=== PATIENT | female | born 1960 | race Caucasian/White ===

== ENCOUNTER 2016-12-31 05:23 | Inpatient (IN) | payer OTHER ==
[2016-12-31] VITALS (18 sets, daily range): BP systolic 115–145; BP diastolic 55–67; PULSE 60–76; RESP 15–25; Ht 157.5 cm; Wt 70.4 kg
[~2016-12-31] VITALS: Ht 157.5 cm; Wt 70.4 kg
[~2016-12-31 05:23] MED LIST: NO DAILY MEDS
[2016-12-31] MEDS ORDERED: AMPICILLIN/SULB 3 GM/NS (PMX) 100 ML IVPB ONE (05:30)
[2016-12-31] MEDS ORDERED: SOD CHLORIDE 0.9% 1,000 ML IV ONE (05:30)
[2016-12-31] MEDS ORDERED: Metronidazole 500 MG in NS 100 ML IVPB ONE (05:30)
[2016-12-31] MEDS ORDERED: ACETAMINOPHEN 1000 MG/100 ML IVPB ONE (07:00)
[2016-12-31] MEDS ORDERED: BUPIVACAINE 0.25% (MPF) 30 ML INJ ONE (07:04)
[2016-12-31] MEDS ORDERED: NAPR220C2 PO (07:25)
[2016-12-31] MEDS ORDERED: LIDOCAINE 2% (SDV) 5 ML INJ ONE (07:29)
[2016-12-31] MEDS ORDERED: PROPOFOL 20 ML ONE (07:29)
[2016-12-31] MEDS ORDERED: FENTAnyl 50 MCG/ML VIAL ONE (07:29)
[2016-12-31] MEDS ORDERED: SUCCINYLCHOLINE CHLORIDE 100 MG/5 ML SYG IV ONE (07:29)
[2016-12-31] MEDS ORDERED: MIDAZOLAM 1 MG/ML 2 ML INJ ONE (07:29)
[2016-12-31] MEDS ORDERED: metroNIDAZOLE 500 MG/NS (PMX) 100 ML IVPB ONE (07:35)
[2016-12-31] MEDS ORDERED: DEXAMETHASONE 4 MG/ML 1 ML INJ ONE (08:05)
[2016-12-31] MEDS ORDERED: METOCLOPRAMIDE 10 MG INJ ONE (08:05)
[2016-12-31] MEDS ORDERED: ROCURONIUM 50 MG INJ ONE (08:05)
[2016-12-31] MEDS ORDERED: ONDANSETRON 4 MG INJ ONE ×2 (08:05→10:03)
[2016-12-31] MEDS ORDERED: FENTAnyl 50 MCG/ML VIAL IV PRN (08:30)
[2016-12-31] MEDS ORDERED: HYDROmorphONE (0.2 MG/ML) 10ML SYG IV PRN ×2 (08:30)
[2016-12-31] MEDS ORDERED: ONDANSETRON 4 MG INJ IV PRN (08:30)
[2016-12-31] MEDS ORDERED: PROCHLORPERAZINE 10 MG INJ IV PRN (08:30)
[2016-12-31] MEDS ORDERED: DIPHENHYDRAMINE 50 MG INJ IV PRN (08:30)
[2016-12-31] MEDS ORDERED: MEPERIDINE 25 MG INJ IV PRN (08:30)
[2016-12-31] MEDS ORDERED: GLYCOPYRROLATE 0.4 MG INJ ONE ×2 (08:40→08:55)
[2016-12-31] MEDS ORDERED: NEOSTIGMINE 3 MG/3 ML SYRINGE ONE (08:56)
[2016-12-31] MEDS ORDERED: HYDROmorphONE 2 MG/ML SYG ONE (09:08)
[2016-12-31] MEDS ORDERED: BUPIVACAINE 0.25% (MPF) 30 ML INJ INJ ONE (11:01)
[2016-12-31] MEDS ORDERED: NALOXONE (0.4 MG/ML) INJ ONE (11:04)
--- NOTE | 2016-12-31 11:20 | OPR ---
Date/Time of Note Date/Time of Note DATE: 12/31/16 TIME: 11:19 Operative Report Procedure Date: Dec 31, 2016 Preoperative Diagnosis repeated diverticulitis Postoperative Diagnosis same Operation Performed laparoscopic rectosigmoidectomy with colorectal low pelvic anastomosis laparoscopic splenic flexure mobilization therapeutic injection of subcutaneous marcaine Surgeon: Chloe CROSS Specimens sigmoid with distal marking rectum with distal marking Chloe CROSS Dec 31, 2016 11:20
[2016-12-31] MEDS ORDERED: HYDROmorphONE 1 MG/ML SYG IV PRN (11:30)
--- NOTE | 2016-12-31 12:51 | OPR ---
DATE OF OPERATION: 12/31/2016 INDICATION: This is a 56-year-old female with repeated bouts of diverticulitis. She requests surgi ingrid excision of her sigmoid colon. Risks, alternatives, benefits, and personnel were discussed with the patient. The patient expressed understanding and consents to the operation. Potential complic ations including, but not limited to, bleeding, infection, anastomotic leak, need for colostomy, nee d for reoperation, possible urethral injury were discussed with the patient. The patient expressed his understanding and consents to the operation. PREOPERATIVE DIAGNOSIS: Repeated diverticulitis. POSTOPERATIVE DIAGNOSIS: Repeated diverticulitis. OPERATION PERFORMED: 1. Laparoscopic rectosigmoidectomy with primary colorectal low pelvic anastomosis. 2. Laparoscopic splenic flexure mobilization. 3. Therapeutic injections, [place], [place] [address]. SURGEON: Renetta Recinos MD SPECIMEN: Sigmoid colon and rectum. COMPLICATIONS: None. ANESTHESIA: General. DESCRIPTION OF PROCEDURE: The patient was taken to the OR and prepped and draped in the usual steri le fashion. Surgical time out was performed. IV antibiotics were given. Supraumbilical midline in cision is made with a 15 blade. Dissection cautery was carried down to the fascia. Stay sutures wi th 0 Vicryl suture were placed on each side of the midline. The midline is opened. Lucas trocar i s introduced. Pneumoperitoneum was established. Suprapubic 12 mm optical trocar and right lower qu adrant 12 mm optical trocar and left lower quadrant 5 mm optical trocars are placed under direct vis ualization. Upon initial inspection, there were some adhesions and evidence of diverticulosis throu ghout the whole colon including the transverse and the right colon. The left colic artery was ident ified with laparoscopic harmonic. This was divided using a 45 mm [place] vascular load stapler. Ad ditional clips were placed in the proximal stump for reanastomosis. The left colon was then mobiliz ed by dividing the peritoneum proximally and distally down to the pelvic brim. The white line of To ldt was also divided laterally all the way superiorly up to the splenic flexure. The splenic flexur e mobilization was performed by first dividing the omentum from the transverse mesentery. The colon was then fully mobilized medially. The white line of Toldt was taken down to the pelvis, and the p erineum of the rectum divided. Initially a sigmoid resection was performed by firing 2 loads of 45 [place] blue load stapler at the pelvic brim. This was marched up proximally and bluntly for full m edial mobilization. The extracorporeal portion was then commenced. The midline incision was extend ed inferiorly around the umbilicus, and the Gel[place] was placed. The colon was extracorporealized un til resection was performed. The specimen was sent with silk marking distal end. The pathologist r eported there were no findings of masses, slowly diverticulosis with stool content in the diverticul osis. EEA anvil 25 was placed into the proximal colon by suturing with a running 3-0 PDS. The colo n was then replaced back into the abdomen. The EEA sizer was placed into the rectal stump. There w as an area of stricture where the EEA sizer could not be passed. Additional rectum resection was pe rformed by firing 2 loads of the 45 [place] blue load stapler. The mesorectum was divided using 2 f ires of the 45 white load [place] stapler. The left ureter was then visualized and identified which was kept out of harm's way. The additional specimen was sent to the pathologist with stitch markin g distal end for evaluation. Intraoperative pathology revealed no evidence of masses or lesions in the mucosa and only hardened stool balls in the diverticulosis. The reanastomosis was performed wit h an EEA 25 stapler by placing a 25 mm sizer up to the rectal stump, and then the EEA stapler was re approximated with the anvil. The colon was evaluated for straightened mesentery. The staple was fi red and held for 1 minute. There was good hemostasis. A leak test was performed by irrigating the pelvis and the proximal colon was held and insufflated. There was no evidence of any bubbles or any leak in the anastomotic site. Irrigation was then suctioned out. The ports were removed under dir ect visualization. The fascia was closed with a running #1 looped PDS from superior to inferior and inferior to superior. All skin sites were closed with skin lauren. Local anesthesia was injected . Dry dressings were applied. Dictated By: RENETTA STRONG/ARTI Conf#: [id number] DID#: [id number]
[2016-12-31] MEDS: SOD CHLORIDE 0.9% 1,000 ML IV SCH ×2 (12:52→22:30)
[2016-12-31 14:30] LABS: ADD SCAN DIFF NO
[2016-12-31 14:32] LABS: ABNORMAL IP MESSAGE 1; BASOPHILS % 0.1 % (0.0-2.0); HEMATOCRIT 38.3 % (37.0-47.0); HEMOGLOBIN 12.9 g/dl (12.0-16.0); LYMPHOCYTES # 0.4 10^3/ul (0.8-2.9); LYMPHOCYTES % 3.1 % (15.0-51.0); MEAN CORPUSCULAR HEMOGLOBIN 32.1 pg (29.0-33.0); MEAN CORPUSCULAR HGB CONC 33.7 g/dl (32.0-37.0); MEAN CORPUSCULAR VOLUME 95.3 fl (82.0-101.0); MEAN PLATELET VOLUME 9.8 fl (7.4-10.4); MONOCYTE # 0.6 10^3/ul (0.3-0.9); MONOCYTES % 5.6 % (0.0-11.0); NEUTROPHIL # 10.4 10^3/ul (1.6-7.5); NEUTROPHILS % 90.9 % (39.0-77.0); PLATELET COUNT 227 10^3/UL (140-415); RED BLOOD COUNT 4.02 10^6/ul (4.20-5.40); RED CELL DISTRIBUTION WIDTH 12.4 % (11.5-14.5); WHITE BLOOD COUNT 11.4 10^3/ul (4.8-10.8)
[2016-12-31] MEDS: AMPICILLIN/SULB 3 GM/NS (PMX) 100 ML IVPB SCH ×2 (14:34→20:26)
[2016-12-31 14:49] LABS: ALBUMIN 4.1 g/dl (3.3-4.9); ALBUMIN/GLOBULIN RATIO 1.78; BILIRUBIN,INDIRECT 0.2 mg/dl (0-1.1); BILIRUBIN,TOTAL 0.2 mg/dl (0.2-1.3); CALCIUM 8.1 mg/dl (8.4-10.2); CREATININE 0.69 mg/dl (0.44-1.00); POTASSIUM 4.3 mmol/L (3.5-5.1); TOTAL PROTEIN 6.4 g/dl (6.1-8.1)
[2016-12-31] MEDS: HEPARIN 5,000 UNIT/0.5 ML VIAL SC SCH ×2 (16:21→23:30)
--- NOTE | 2016-12-31 17:20 | HP ---
DATE OF ADMISSION: 12/31/2016 HISTORY OF PRESENT ILLNESS: The patient is a 56-year-old female with history of GERD, renal stones, arthritis, and diverticulosis. The patient had repeated bouts of diverticulitis and requested surg ical excision of the sigmoid colon. The patient was evaluated by Dr. Recinos in general surgery consult ation, and the patient was brought to the hospital and underwent laparoscopic rectosigmoidectomy wit h primary colorectal low pelvic anastomosis and laparoscopic splenic flexure mobilization. Postoper atively, the patient was admitted for further evaluation and management. During the examination, th e patient is lethargic but easily arousable, on supplemental oxygen, complains of pain, denies any s hortness of breath, denies any chest pain. PAST MEDICAL HISTORY: Per HPI. PAST SURGICAL HISTORY: The patient denies having any surgeries in the past except for colonoscopy p rocedure. FAMILY HISTORY: Positive for gastric cancer in patient's mother. SOCIAL HISTORY: The patient lives at home with her family. The patient works as a cook. Denies an y tobacco use, denies any alcohol use, denies any illicit drug use. ALLERGIES: NO KNOWN ALLERGIES. HOME MEDICATIONS: Include Naproxen. REVIEW OF SYSTEMS: A 12-point review of systems is negative unless what is mentioned in the HPI. PHYSICAL ASSESSMENT: GENERAL: Well-developed, well-nourished female who currently is awake, alert. VITAL SIGNS: Temperature is 97.7, pulse is 73, blood pressure 121/60, respiratory rate 18, oxygen s aturation 94% on 2 liters nasal cannula. HEENT: Head is atraumatic, normocephalic. Pupils equal, round, reactive to light and accommodation . Oral mucosa is pink and moist. NECK: Supple. No cervical lymphadenopathy, no thyromegaly. CHEST: Lungs clear bilaterally. There are no rhonchi, wheezes, rales noted. CARDIOVASCULAR: Normal S1, S2. No murmurs, gallops, clicks, rubs noted. ABDOMEN: Round, soft, status post surgery with laparoscopic incisions intact with dressings and ban dages. GENITOURINARY: The patient has a Hutchinson catheter with yellow urine. EXTREMITIES: There is no edema, clubbing, cyanosis. Pulses equal bilaterally 2+. SKIN: There is no rash, petechiae noted. NEUROLOGIC: The patient is awake, alert, and oriented x3. No focal deficits noted. Motor strength 5/5 in all extremities. LABORATORY DATA: Today CBC: White blood cells 11.4, hemoglobin 12.9, hematocrit 38.3, platelets 22 7. Chemistry: Sodium is 142, potassium 4.3, chloride 111, carbon dioxide 22, anion gap 15, BUN is 10, creatinine 0.69, glucose 159, calcium 8.1, total bilirubin 0.2, direct bilirubin 0, indirect idalia irubin 0.2, AST 21, ALT 24, alkaline phosphatase 60. ASSESSMENT AND PLAN: 1. Recurrent diverticulitis status post laparoscopic rectosigmoidectomy with primary colorectal low pelvic anastomosis, status post laparoscopic splenic flexure mobilization by Dr. Recinos. Continue IV fluids and antibiotics. Continue morphine for pain and Zofran p.r.n. for nausea. Follow up surgica l recommendations. 2. History of gastroesophageal reflux disease. We will continue sequential compression device for deep venous thrombosis prophylaxis. We will check CBC and BMP tomorrow. Further recommendations based on clinical course. Plan of care discussed with Dr. Marroquin. Dictated By: PETR WADE PATIENT COORDINATOR for EVA MARROQUIN MD SR/NTS Conf#: [id number] DID#: [id number]
[2016-12-31] MEDS: morphine 2 MG INJ IV PRN (18:40)
[2017-01-01] MEDS: AMPICILLIN/SULB 3 GM/NS (PMX) 100 ML IVPB SCH ×2 (02:25→08:44)
[2017-01-01] MEDS: morphine 2 MG INJ IV PRN ×5 (02:25→19:08)
[2017-01-01] MEDS: ONDANSETRON 4 MG INJ IV PRN (02:59)
[2017-01-01 05:49] LABS: ADD SCAN DIFF NO
[2017-01-01 05:52] LABS: BASOPHILS % 0.1 % (0.0-2.0); HEMATOCRIT 34.2 % (37.0-47.0); HEMOGLOBIN 11.6 g/dl (12.0-16.0); LYMPHOCYTES # 0.8 10^3/ul (0.8-2.9); LYMPHOCYTES % 6.1 % (15.0-51.0); MEAN CORPUSCULAR HGB CONC 33.9 g/dl (32.0-37.0); MEAN CORPUSCULAR VOLUME 94.2 fl (82.0-101.0); MEAN PLATELET VOLUME 10.6 fl (7.4-10.4); MONOCYTE # 0.8 10^3/ul (0.3-0.9); NEUTROPHIL # 11.3 10^3/ul (1.6-7.5); NEUTROPHILS % 87.5 % (39.0-77.0); PLATELET COUNT 226 10^3/UL (140-415); RED BLOOD COUNT 3.63 10^6/ul (4.20-5.40); RED CELL DISTRIBUTION WIDTH 12.4 % (11.5-14.5); WHITE BLOOD COUNT 12.9 10^3/ul (4.8-10.8)
[2017-01-01] MEDS: HEPARIN 5,000 UNIT/0.5 ML VIAL SC SCH ×3 (06:33→21:13)
[2017-01-01 06:51] LABS: ALBUMIN 3.4 g/dl (3.3-4.9); ALBUMIN/GLOBULIN RATIO 1.25; BILIRUBIN,INDIRECT 0.5 mg/dl (0-1.1); BILIRUBIN,TOTAL 0.5 mg/dl (0.2-1.3); CALCIUM 8.3 mg/dl (8.4-10.2); CREATININE 0.63 mg/dl (0.44-1.00); POTASSIUM 3.6 mmol/L (3.5-5.1); TOTAL PROTEIN 6.1 g/dl (6.1-8.1)
[2017-01-01 07:51] VITALS: BP 126/65; RESP 18
[2017-01-01] MEDS: SOD CHLORIDE 0.9% 1,000 ML IV SCH ×3 (08:03→21:11)
--- NOTE | 2017-01-01 13:09 | PN ---
Date/Time of Note Date/Time of Note DATE: 01/01/17 TIME: 13:08 Assessment/Plan VTE Prophylaxis VTE Prophylaxis Intervention: SCD's Lines/Catheters IV Catheter Type (from Nrs): Peripheral IV Urinary Cath still in place: Yes Reason Cath still needed: other (indicate) Assessment/Plan Chief Complaint/Hosp Course s/p lap rectosigmoidectomy Problems: Assessment/Plan doing well, continue ice chips Subjective 24 Hr Interval Summary Free Text/Dictation no issues overnight Exam/Review of Systems Vital Signs Vitals Vital Signs Date Time Temp Pulse Resp B/P Pulse Ox O2 Delivery O2 Flow Rate FiO2 01/01/17 07:51 98.7 88 18 126/65 96 12/31/16 13:37 Nasal Cannula 2.0 Intake and Output 12/31/16 12/31/16 01/01/17 15:00 23:00 07:00 Intake Total 1650 ml 1100 ml 900 ml Output Total 570 ml 900 ml 250 ml Balance 1080 ml 200 ml 650 ml Exam c/d/i Results Result Diagram: 01/01/17 0515 01/01/17 0515 Results 24 hrs Laboratory Tests Test 12/31/16 14:22 01/01/17 05:15 01/01/17 07:19 White Blood Count 11.4 H 12.9 H Red Blood Count 4.02 L 3.63 L Hemoglobin 12.9 11.6 L Hematocrit 38.3 34.2 L Mean Corpuscular Volume 95.3 94.2 Mean Corpuscular Hemoglobin 32.1 32.0 Mean Corpuscular Hemoglobin Concent 33.7 33.9 Red Cell Distribution Width 12.4 12.4 Platelet Count 227 226 Mean Platelet Volume 9.8 10.6 H Neutrophils % 90.9 H 87.5 H Lymphocytes % 3.1 L 6.1 L Monocytes % 5.6 6.0 Eosinophils % 0.0 0.0 Basophils % 0.1 0.1 Nucleated Red Blood Cells % 0.0 0.0 Neutrophils # 10.4 H 11.3 H Lymphocytes # 0.4 L 0.8 Monocytes # 0.6 0.8 Eosinophils # 0.0 0.0 Basophils # 0.0 0.0 Nucleated Red Blood Cells # 0.0 0.0 Sodium Level 142 140 Potassium Level 4.3 3.6 Chloride Level 111 H 111 H Carbon Dioxide Level 22 21 Anion Gap 13 12 Blood Urea Nitrogen 10 9 Creatinine 0.69 0.63 Glucose Level 159 118 # Calcium Level 8.1 L 8.3 L Total Bilirubin 0.2 0.5 Direct Bilirubin 0.00 0.00 Indirect Bilirubin 0.2 0.5 Aspartate Amino Transf (AST/SGOT) 21 26 Alanine Aminotransferase (ALT/SGPT) 24 18 Alkaline Phosphatase 60 52 Total Protein 6.4 6.1 Albumin 4.1 3.4 Globulin 2.30 2.70 Albumin/Globulin Ratio 1.78 1.25 Lab Scanned Report LAB Medications Medications Current Medications Hydromorphone HCl (Dilaudid) 0.5 mg Q6H PRN IV PAIN LEVEL 6-10; Start 12/31/16 at 11:30 Morphine Sulfate 2 mg 2 mg Q2H PRN IV PAIN LEVEL 6-10 Last administered on 01/01 12:24; Admin Dose 2 MG; Start 12/31/16 at 11:30 Sodium Chloride (NS) 1,000 ml @ 100 mls/hr Q10H IV Last administered on 08:03; Admin Dose 100 MLS/HR; Start 12/31/16 at 11:20 Heparin Sodium (Porcine) (Heparin (5000 Units/0.5 ml)) 5,000 unit Q8 SC Last administered on 01/01/17 06:33; Admin Dose 5,000 UNIT; Start 12/31/16 at 14:00 Ondansetron HCl (Zofran Inj) 4 mg Q4H PRN IV NAUSEA AND/OR VOMITING Last administered on 01/01/17 02:59; Admin Dose 4 MG; Start 01/01/17 at 03:00 Chloe CROSS Jan 01, 2017 13:09
--- NOTE | 2017-01-01 16:43 | PN ---
Date/Time of Note Date/Time of Note DATE: 01/01/17 TIME: 16:40 Assessment/Plan VTE Prophylaxis VTE Prophylaxis Intervention: SCD's Lines/Catheters IV Catheter Type (from Nrs): Peripheral IV Urinary Cath still in place: Yes Reason Cath still needed: urinary retention Assessment/Plan Chief Complaint/Hosp Course Patient tolerates ice chips well, denies nausea and vomiting, complaints of abdominal pain which is well controlled on current medication. Hypoactive bowel sounds no flatus ASSESSMENT AND PLAN: 1. Recurrent diverticulitis, status post laparoscopic rectosigmoidectomy with primary colorectal low pelvic anastomosis, status post laparoscopic splenic flexure mobilization by Dr. Recinos. Continue IV fluids. Continue morphine for pain and Zofran p.r.n. for nausea. Follow up surgical recommendations. 2. History of gastroesophageal reflux disease. Continue sequential compression device for deep venous thrombosis prophylaxis. Further recommendations based on clinical course. Plan of care discussed with Dr. Gardner. Problems: Exam/Review of Systems Vital Signs Vitals Vital Signs Date Time Temp Pulse Resp B/P Pulse Ox O2 Delivery O2 Flow Rate FiO2 01/01/17 07:51 98.7 88 18 126/65 96 12/31/16 13:37 Nasal Cannula 2.0 Intake and Output 12/31/16 12/31/16 01/01/17 14:59 22:59 06:59 Intake Total 1650 ml 1100 ml 900 ml Output Total 570 ml 900 ml 250 ml Balance 1080 ml 200 ml 650 ml Exam Constitutional: alert, oriented Head: normocephalic Neck: supple Respiratory: normal air movement Cardiovascular: nl pulses Gastrointestinal: other (Status post surgery), soft Extremities: normal pulses Results Result Diagram: 01/01/17 0515 01/01/17 0515 Results 24 hrs Laboratory Tests Test 01/01/17 05:15 01/01/17 07:19 White Blood Count 12.9 H Red Blood Count 3.63 L Hemoglobin 11.6 L Hematocrit 34.2 L Mean Corpuscular Volume 94.2 Mean Corpuscular Hemoglobin 32.0 Mean Corpuscular Hemoglobin Concent 33.9 Red Cell Distribution Width 12.4 Platelet Count 226 Mean Platelet Volume 10.6 H Neutrophils % 87.5 H Lymphocytes % 6.1 L Monocytes % 6.0 Eosinophils % 0.0 Basophils % 0.1 Nucleated Red Blood Cells % 0.0 Neutrophils # 11.3 H Lymphocytes # 0.8 Monocytes # 0.8 Eosinophils # 0.0 Basophils # 0.0 Nucleated Red Blood Cells # 0.0 Sodium Level 140 Potassium Level 3.6 Chloride Level 111 H Carbon Dioxide Level 21 Anion Gap 12 Blood Urea Nitrogen 9 Creatinine 0.63 Glucose Level 118 # Calcium Level 8.3 L Total Bilirubin 0.5 Direct Bilirubin 0.00 Indirect Bilirubin 0.5 Aspartate Amino Transf (AST/SGOT) 26 Alanine Aminotransferase (ALT/SGPT) 18 Alkaline Phosphatase 52 Total Protein 6.1 Albumin 3.4 Globulin 2.70 Albumin/Globulin Ratio 1.25 Lab Scanned Report LAB Medications Medications Current Medications Hydromorphone HCl (Dilaudid) 0.5 mg Q6H PRN IV PAIN LEVEL 6-10; Start 12/31/16 at 11:30 Morphine Sulfate 2 mg 2 mg Q2H PRN IV PAIN LEVEL 6-10 Last administered on 01/01 12:24; Admin Dose 2 MG; Start 12/31/16 at 11:30 Sodium Chloride (NS) 1,000 ml @ 100 mls/hr Q10H IV Last administered on 08:03; Admin Dose 100 MLS/HR; Start 12/31/16 at 11:20 Heparin Sodium (Porcine) (Heparin (5000 Units/0.5 ml)) 5,000 unit Q8 SC Last administered on 01/01/17 14:18; Admin Dose 5,000 UNIT; Start 12/31/16 at 14:00 Ondansetron HCl (Zofran Inj) 4 mg Q4H PRN IV NAUSEA AND/OR VOMITING Last administered on 01/01/17 02:59; Admin Dose 4 MG; Start 01/01/17 at 03:00 PETR WADE Jan 01, 2017 16:43
[2017-01-01 20:00] VITALS: BP 132/68; RESP 20
[2017-01-02] MEDS: HEPARIN 5,000 UNIT/0.5 ML VIAL SC SCH ×3 (05:31→22:15)
[2017-01-02] MEDS: morphine 2 MG INJ IV PRN ×6 (05:33→22:07)
[2017-01-02 06:15] LABS: ADD SCAN DIFF NO
[2017-01-02 06:37] LABS: BASOPHILS % 0.1 % (0.0-2.0); EOSINOPHILS % 0.1 % (0.0-7.0); HEMATOCRIT 33.5 % (37.0-47.0); LYMPHOCYTES # 1.2 10^3/ul (0.8-2.9); LYMPHOCYTES % 15.9 % (15.0-51.0); MEAN CORPUSCULAR HEMOGLOBIN 31.1 pg (29.0-33.0); MEAN CORPUSCULAR HGB CONC 32.8 g/dl (32.0-37.0); MEAN CORPUSCULAR VOLUME 94.6 fl (82.0-101.0); MEAN PLATELET VOLUME 10.8 fl (7.4-10.4); MONOCYTE # 0.4 10^3/ul (0.3-0.9); MONOCYTES % 5.3 % (0.0-11.0); NEUTROPHILS % 78.1 % (39.0-77.0); PLATELET COUNT 197 10^3/UL (140-415); RED BLOOD COUNT 3.54 10^6/ul (4.20-5.40); RED CELL DISTRIBUTION WIDTH 12.6 % (11.5-14.5); WHITE BLOOD COUNT 7.7 10^3/ul (4.8-10.8)
[2017-01-02 07:26] VITALS: BP 122/66; RESP 18
[2017-01-02 07:28] LABS: CREATININE 0.69 mg/dl (0.44-1.00); POTASSIUM 3.5 mmol/L (3.5-5.1)
[2017-01-02] MEDS: SOD CHLORIDE 0.9% 1,000 ML IV SCH ×2 (08:38→18:53)
--- NOTE | 2017-01-02 12:18 | PN ---
Date/Time of Note Date/Time of Note DATE: 01/02/17 TIME: 12:17 Assessment/Plan VTE Prophylaxis VTE Prophylaxis Intervention: SCD's Lines/Catheters IV [facility] Type [facility] Peripheral IV Urinary Cath still in place: No (discontinued at 0630am today) Assessment/Plan Chief Complaint/Hosp Course Patient was hypoactive bowel sounds and negative flatus, complains of nausea which is controlled with medication, pain is well controlled. ASSESSMENT AND PLAN: 1. Recurrent diverticulitis, status post laparoscopic rectosigmoidectomy with primary colorectal low pelvic anastomosis, status post laparoscopic splenic flexure mobilization by Dr. Recinos. Continue IV fluids. Continue morphine for pain and Zofran p.r.n. for nausea. Follow up surgical recommendations. 2. History of gastroesophageal reflux disease. Continue sequential compression device for deep venous thrombosis prophylaxis. Further recommendations based on clinical course. Plan of care discussed with Dr. Gardner. Problems: Exam/Review of Systems Vital Signs Vitals Vital Signs Date Time Temp Pulse Resp B/P Pulse Ox O2 Delivery O2 Flow Rate FiO2 01/02/17 07:26 98.7 68 18 122/66 96 01/01/17 16:40 1.0 12/31/16 13:37 Nasal Cannula Intake and Output 01/01/17 01/01/17 01/02/17 15:00 23:00 07:00 Intake Total 400 ml 2000 ml 900 ml Output Total 1800 ml 1000 ml Balance 400 ml 200 ml -100 ml Exam Constitutional: alert, oriented Head: normocephalic Neck: supple Respiratory: normal air movement Cardiovascular: nl pulses Gastrointestinal: other (Status post surgery), soft Extremities: normal pulses Results Result Diagram: 01/02/17 0530 01/02/17 0530 Results 24 hrs Laboratory Tests Test 01/02/17 05:30 01/02/17 06:57 White Blood Count 7.7 # Red Blood Count 3.54 L Hemoglobin 11.0 L Hematocrit 33.5 L Mean Corpuscular Volume 94.6 Mean Corpuscular Hemoglobin 31.1 Mean Corpuscular Hemoglobin Concent 32.8 Red Cell Distribution Width 12.6 Platelet Count 197 Mean Platelet Volume 10.8 H Neutrophils % 78.1 H Lymphocytes % 15.9 Monocytes % 5.3 Eosinophils % 0.1 Basophils % 0.1 Nucleated Red Blood Cells % 0.0 Neutrophils # 6.0 Lymphocytes # 1.2 Monocytes # 0.4 Eosinophils # 0.0 Basophils # 0.0 Nucleated Red Blood Cells # 0.0 Sodium Level 140 Potassium Level 3.5 Chloride Level 110 Carbon Dioxide Level 24 Anion Gap 10 Blood Urea Nitrogen 10 Creatinine 0.69 Glucose Level 84 Calcium Level 8.0 L Lab Scanned Report REFERENCE LAB Medications Medications Current Medications Hydromorphone HCl (Dilaudid) 0.5 mg Q6H PRN IV PAIN LEVEL 6-10; Start 12/31/16 at 11:30 Morphine Sulfate 2 mg 2 mg Q2H PRN IV PAIN LEVEL 6-10 Last administered on 01/02 08:49; Admin Dose 2 MG; Start 12/31/16 at 11:30 Sodium Chloride (NS) 1,000 ml @ 100 mls/hr Q10H IV Last administered on 08:38; Admin Dose 100 MLS/HR; Start 12/31/16 at 11:20 Heparin Sodium (Porcine) (Heparin (5000 Units/0.5 ml)) 5,000 unit Q8 SC Last administered on 01/02/17 05:31; Admin Dose 5,000 UNIT; Start 12/31/16 at 14:00 Ondansetron HCl (Zofran Inj) 4 mg Q4H PRN IV NAUSEA AND/OR VOMITING Last administered on 01/01/17 02:59; Admin Dose 4 MG; Start 01/01/17 at 03:00 PETR WADE Jan 02, 2017 12:18
--- NOTE | 2017-01-02 13:16 | PN ---
Date/Time of Note Date/Time of Note DATE: 01/02/17 TIME: 13:15 Assessment/Plan VTE Prophylaxis VTE Prophylaxis Intervention: SCD's Lines/Catheters IV Catheter Type (from Nrs): Peripheral IV Urinary Cath still in place: No (discontinued at 0630am today) Assessment/Plan Chief Complaint/Hosp Course s/p lap rectosigmoidectomy Problems: Assessment/Plan start clears Subjective 24 Hr Interval Summary Free Text/Dictation doing well no new issues Exam/Review of Systems Vital Signs Vitals Vital Signs Date Time Temp Pulse Resp B/P Pulse Ox O2 Delivery O2 Flow Rate FiO2 01/02/17 07:26 98.7 68 18 122/66 96 01/01/17 16:40 1.0 12/31/16 13:37 Nasal Cannula Intake and Output 01/01/17 01/01/17 01/02/17 15:00 23:00 07:00 Intake Total 400 ml 2000 ml 900 ml Output Total 1800 ml 1000 ml Balance 400 ml 200 ml -100 ml Exam c/d/i Results Result Diagram: 01/02/17 0530 01/02/17 0530 Results 24 hrs Laboratory Tests Test 01/02/17 05:30 01/02/17 06:57 White Blood Count 7.7 # Red Blood Count 3.54 L Hemoglobin 11.0 L Hematocrit 33.5 L Mean Corpuscular Volume 94.6 Mean Corpuscular Hemoglobin 31.1 Mean Corpuscular Hemoglobin Concent 32.8 Red Cell Distribution Width 12.6 Platelet Count 197 Mean Platelet Volume 10.8 H Neutrophils % 78.1 H Lymphocytes % 15.9 Monocytes % 5.3 Eosinophils % 0.1 Basophils % 0.1 Nucleated Red Blood Cells % 0.0 Neutrophils # 6.0 Lymphocytes # 1.2 Monocytes # 0.4 Eosinophils # 0.0 Basophils # 0.0 Nucleated Red Blood Cells # 0.0 Sodium Level 140 Potassium Level 3.5 Chloride Level 110 Carbon Dioxide Level 24 Anion Gap 10 Blood Urea Nitrogen 10 Creatinine 0.69 Glucose Level 84 Calcium Level 8.0 L Lab Scanned Report REFERENCE LAB Medications Medications Current Medications Hydromorphone HCl (Dilaudid) 0.5 mg Q6H PRN IV PAIN LEVEL 6-10; Start 12/31/16 at 11:30 Morphine Sulfate 2 mg 2 mg Q2H PRN IV PAIN LEVEL 6-10 Last administered on 01/02 12:24; Admin Dose 2 MG; Start 12/31/16 at 11:30 Sodium Chloride (NS) 1,000 ml @ 100 mls/hr Q10H IV Last administered on 08:38; Admin Dose 100 MLS/HR; Start 12/31/16 at 11:20 Heparin Sodium (Porcine) (Heparin (5000 Units/0.5 ml)) 5,000 unit Q8 SC Last administered on 01/02/17 05:31; Admin Dose 5,000 UNIT; Start 12/31/16 at 14:00 Ondansetron HCl (Zofran Inj) 4 mg Q4H PRN IV NAUSEA AND/OR VOMITING Last administered on 01/01/17 02:59; Admin Dose 4 MG; Start 01/01/17 at 03:00 Chloe CROSS Jan 02, 2017 13:16
[2017-01-02] MEDS: ONDANSETRON 4 MG INJ IV PRN (18:03)
[2017-01-02 20:52] VITALS: BP 147/70; RESP 18
[2017-01-03] MEDS: morphine 2 MG INJ IV PRN ×3 (05:11→21:15)
[2017-01-03] MEDS: HEPARIN 5,000 UNIT/0.5 ML VIAL SC SCH ×3 (05:23→21:20)
[2017-01-03] MEDS: SOD CHLORIDE 0.9% 1,000 ML IV SCH ×4 (06:00→19:20)
[2017-01-03 06:02] LABS: ADD SCAN DIFF NO
[2017-01-03 06:13] LABS: BASOPHILS % 0.2 % (0.0-2.0); EOSINOPHILS # 0.1 10^3/ul (0.0-0.5); EOSINOPHILS % 0.9 % (0.0-7.0); HEMATOCRIT 32.5 % (37.0-47.0); HEMOGLOBIN 10.8 g/dl (12.0-16.0); LYMPHOCYTES # 0.9 10^3/ul (0.8-2.9); LYMPHOCYTES % 13.4 % (15.0-51.0); MEAN CORPUSCULAR HEMOGLOBIN 31.7 pg (29.0-33.0); MEAN CORPUSCULAR HGB CONC 33.2 g/dl (32.0-37.0); MEAN CORPUSCULAR VOLUME 95.3 fl (82.0-101.0); MEAN PLATELET VOLUME 10.5 fl (7.4-10.4); MONOCYTE # 0.4 10^3/ul (0.3-0.9); MONOCYTES % 6.3 % (0.0-11.0); NEUTROPHIL # 5.1 10^3/ul (1.6-7.5); NEUTROPHILS % 78.9 % (39.0-77.0); PLATELET COUNT 189 10^3/UL (140-415); RED BLOOD COUNT 3.41 10^6/ul (4.20-5.40); RED CELL DISTRIBUTION WIDTH 12.4 % (11.5-14.5); WHITE BLOOD COUNT 6.5 10^3/ul (4.8-10.8)
[2017-01-03 06:39] LABS: CREATININE 0.68 mg/dl (0.44-1.00); POTASSIUM 3.3 mmol/L (3.5-5.1)
[2017-01-03 07:48] VITALS: BP 136/68; RESP 16
--- NOTE | 2017-01-03 11:04 | PN ---
Date/Time of Note Date/Time of Note DATE: 01/03/17 TIME: 11:01 Assessment/Plan VTE Prophylaxis VTE Prophylaxis Intervention: other Lines/Catheters IV C[facility]ter Type (from [facility]): Peripheral IV Urinary Cath still in place: No (discontinued at 0630am today) Assessment/Plan Assessment/Plan - Hypokalemia- K replaced, am BMP - Recurrent diverticulitis, status post laparoscopic rectosigmoidectomy with primary colorectal low pelvic anastomosis, status post laparoscopic splenic flexure mobilization by Dr. Recinos. Continue IV fluids. - per Sx - morphine for pain - Zofran p.r.n. for nausea. Follow up surgical recommendations. - History of gastroesophageal reflux disease. Continue sequential compression device for deep venous thrombosis prophylaxis. Further recommendations based on clinical course. Plan of care discussed with Dr. Gardner. Subjective 24 Hr Interval Summary Free Text/Dictation Sitting up in chair, afebrile, has not passed gas yet, DDI, c/o nausea when eating food. ambulated well with staff Respiratory: no complaints Cardiovascular: no complaints Gastrointestinal: nausea, pain Genitourinary: no complaints Musculoskeletal: no complaints Skin: other Neurologic: no complaints Exam/Review of Systems Vital Signs Vitals Vital Signs Date Time Temp Pulse Resp B/P Pulse Ox O2 Delivery O2 Flow Rate FiO2 01/03/17 07:48 98.5 67 16 136/68 98 01/01/17 16:40 1.0 12/31/16 13:37 Nasal Cannula Intake and Output 01/02/17 01/02/17 01/03/17 15:00 23:00 07:00 Intake Total 100 ml 1410 ml 1360 ml Output Total 1200 ml 900 ml Balance 100 ml 210 ml 460 ml Exam Constitutional: alert, oriented, well developed ENMT: nl external ears & nose Respiratory: clear to auscultation, normal air movement Cardiovascular: nl pulses, regular rate and rhythm Gastrointestinal: other (hypoactive BS. no gas passing yet, barely tolerates clear liquids, abdominal dressing - intact), soft Musculoskeletal: nl extremities to inspection Extremities: normal pulses Neurological: nl mental status, nl speech Results Result Diagram: 01/03/17 0521 01/03/17 0521 Results 24 hrs Laboratory Tests Test 01/03/17 05:21 White Blood Count 6.5 Red Blood Count 3.41 L Hemoglobin 10.8 L Hematocrit 32.5 L Mean Corpuscular Volume 95.3 Mean Corpuscular Hemoglobin 31.7 Mean Corpuscular Hemoglobin Concent 33.2 Red Cell Distribution Width 12.4 Platelet Count 189 Mean Platelet Volume 10.5 H Neutrophils % 78.9 H Lymphocytes % 13.4 L Monocytes % 6.3 Eosinophils % 0.9 Basophils % 0.2 Nucleated Red Blood Cells % 0.0 Neutrophils # 5.1 Lymphocytes # 0.9 Monocytes # 0.4 Eosinophils # 0.1 Basophils # 0.0 Nucleated Red Blood Cells # 0.0 Sodium Level 139 Potassium Level 3.3 L Chloride Level 109 Carbon Dioxide Level 24 Anion Gap 9 Blood Urea Nitrogen 9 Creatinine 0.68 Glucose Level 81 Calcium Level 8.0 L Medications Medications Current Medications Hydromorphone HCl (Dilaudid) 0.5 mg Q6H PRN IV PAIN LEVEL 6-10; Start 12/31/16 at 11:30 Morphine Sulfate 2 mg 2 mg Q2H PRN IV PAIN LEVEL 6-10 Last administered on 01/03 05:11; Admin Dose 2 MG; Start 12/31/16 at 11:30 Sodium Chloride (NS) 1,000 ml @ 100 mls/hr Q10H IV Last administered on 06:00; Admin Dose 100 MLS/HR; Start 12/31/16 at 11:20 Heparin Sodium (Porcine) (Heparin (5000 Units/0.5 ml)) 5,000 unit Q8 SC Last administered on 01/03/17 05:23; Admin Dose 5,000 UNIT; Start 12/31/16 at 14:00 Ondansetron HCl (Zofran Inj) 4 mg Q4H PRN IV NAUSEA AND/OR VOMITING Last administered on 01/02/17 18:03; Admin Dose 4 MG; Start 01/01/17 at 03:00 WILD LIU Jan 03, 2017 11:04
[2017-01-03 20:00] VITALS: BP 116/56; RESP 16
[2017-01-04] MEDS: SOD CHLORIDE 0.9% 1,000 ML IV SCH ×3 (04:46→15:20)
[2017-01-04] MEDS: HEPARIN 5,000 UNIT/0.5 ML VIAL SC SCH ×3 (05:43→22:50)
[2017-01-04 06:00] LABS: ADD SCAN DIFF NO
[2017-01-04 06:19] LABS: BASOPHILS % 0.2 % (0.0-2.0); EOSINOPHILS # 0.1 10^3/ul (0.0-0.5); HEMATOCRIT 32.2 % (37.0-47.0); HEMOGLOBIN 11.3 g/dl (12.0-16.0); LYMPHOCYTES # 0.9 10^3/ul (0.8-2.9); LYMPHOCYTES % 16.1 % (15.0-51.0); MEAN CORPUSCULAR HGB CONC 35.1 g/dl (32.0-37.0); MEAN CORPUSCULAR VOLUME 91.2 fl (82.0-101.0); MEAN PLATELET VOLUME 10.1 fl (7.4-10.4); MONOCYTE # 0.4 10^3/ul (0.3-0.9); MONOCYTES % 6.9 % (0.0-11.0); NEUTROPHIL # 4.3 10^3/ul (1.6-7.5); NEUTROPHILS % 75.3 % (39.0-77.0); PLATELET COUNT 212 10^3/UL (140-415); RED BLOOD COUNT 3.53 10^6/ul (4.20-5.40); RED CELL DISTRIBUTION WIDTH 12.1 % (11.5-14.5); WHITE BLOOD COUNT 5.8 10^3/ul (4.8-10.8)
[2017-01-04 07:11] LABS: CALCIUM 8.7 mg/dl (8.4-10.2); CREATININE 0.61 mg/dl (0.44-1.00); POTASSIUM 3.2 mmol/L (3.5-5.1)
[2017-01-04 08:23] VITALS: BP 132/71; RESP 20
--- NOTE | 2017-01-04 14:04 | PN ---
Date/Time of Note Date/Time of Note DATE: 01/04/17 TIME: 14:03 Assessment/Plan VTE Prophylaxis VTE Prophylaxis Intervention: SCD's Lines/Catheters IV Catheter Type (from Nrs): Peripheral IV Urinary Cath still in place: No (discontinued at 0630am today) Assessment/Plan Chief Complaint/Hosp Course s/p lap rectosigmoidectomy Problems: Assessment/Plan start gi soft Subjective 24 Hr Interval Summary Free Text/Dictation slow progression, tolerating full liquids, had flatus no bm Exam/Review of Systems Vital Signs Vitals Vital Signs Date Time Temp Pulse Resp B/P Pulse Ox O2 Delivery O2 Flow Rate FiO2 01/04/17 08:23 99.3 70 20 132/71 97 01/01/17 16:40 1.0 12/31/16 13:37 Nasal Cannula Intake and Output 01/03/17 01/03/17 01/04/17 15:00 23:00 07:00 Intake Total 1920 ml 1300 ml Output Total 1100 ml 1650 ml Balance 820 ml -350 ml Exam c/d/i Results Result Diagram: 01/04/17 0517 01/04/17 0547 Results 24 hrs Laboratory Tests Test 01/04/17 05:17 01/04/17 05:47 White Blood Count 5.8 Red Blood Count 3.53 L Hemoglobin 11.3 L Hematocrit 32.2 L Mean Corpuscular Volume 91.2 Mean Corpuscular Hemoglobin 32.0 Mean Corpuscular Hemoglobin Concent 35.1 Red Cell Distribution Width 12.1 Platelet Count 212 Mean Platelet Volume 10.1 Neutrophils % 75.3 Lymphocytes % 16.1 Monocytes % 6.9 Eosinophils % 1.0 Basophils % 0.2 Nucleated Red Blood Cells % 0.0 Neutrophils # 4.3 Lymphocytes # 0.9 Monocytes # 0.4 Eosinophils # 0.1 Basophils # 0.0 Nucleated Red Blood Cells # 0.0 Sodium Level 139 Potassium Level 3.2 L Chloride Level 109 Carbon Dioxide Level 22 Anion Gap 11 Blood Urea Nitrogen 7 Creatinine 0.61 Glucose Level 100 Calcium Level 8.7 Medications Medications Current Medications Hydromorphone HCl (Dilaudid) 0.5 mg Q6H PRN IV PAIN LEVEL 6-10; Start 12/31/16 at 11:30 Morphine Sulfate 2 mg 2 mg Q2H PRN IV PAIN LEVEL 6-10 Last administered on 01/03 21:15; Admin Dose 2 MG; Start 12/31/16 at 11:30 Sodium Chloride (NS) 1,000 ml @ 100 mls/hr Q10H IV Last administered on 04:46; Admin Dose 100 MLS/HR; Start 12/31/16 at 11:20 Heparin Sodium (Porcine) (Heparin (5000 Units/0.5 ml)) 5,000 unit Q8 SC Last administered on 01/04/17 05:43; Admin Dose 5,000 UNIT; Start 12/31/16 at 14:00 Ondansetron HCl (Zofran Inj) 4 mg Q4H PRN IV NAUSEA AND/OR VOMITING Last administered on 01/02/17 18:03; Admin Dose 4 MG; Start 01/01/17 at 03:00 Chloe CROSS Jan 04, 2017 14:03
--- NOTE | 2017-01-04 17:49 | PN ---
Date/Time of Note Date/Time of Note DATE: 01/04/17 TIME: 17:48 Assessment/Plan VTE Prophylaxis VTE Prophylaxis Intervention: SCD's Lines/Catheters IV Catheter Type (from [facility]): Peripheral IV Urinary Cath still in place: No (discontinued at 0630am today) Assessment/Plan Chief Complaint/Hosp Course Patient tolerates full liquid diet well, diet is advanced to soft by surgery, patient pain is well controlled. ASSESSMENT AND PLAN: 1. Recurrent diverticulitis, status post laparoscopic rectosigmoidectomy with primary colorectal low pelvic anastomosis, status post laparoscopic splenic flexure mobilization by Dr. Recinos. Continue IV fluids. Continue morphine for pain and Zofran p.r.n. for nausea. Follow up surgical recommendations. 2. History of gastroesophageal reflux disease. 3. Hypokalemia, potassium replacement ordered. Continue to monitor electrolytes. Continue sequential compression device for deep venous thrombosis prophylaxis. Further recommendations based on clinical course. Plan of care discussed with Dr. Gardner. Problems: Exam/Review of Systems Vital Signs Vitals Vital Signs Date Time Temp Pulse Resp B/P Pulse Ox O2 Delivery O2 Flow Rate FiO2 01/04/17 08:23 99.3 70 20 132/71 97 01/01/17 16:40 1.0 12/31/16 13:37 Nasal Cannula Intake and Output 01/03/17 01/03/17 01/04/17 15:00 23:00 07:00 Intake Total 1920 ml 1300 ml Output Total 1100 ml 1650 ml Balance 820 ml -350 ml Exam Constitutional: alert, oriented Head: normocephalic Neck: supple Respiratory: normal air movement Cardiovascular: nl pulses Gastrointestinal: other (Status post surgery), soft Extremities: normal pulses Results Result Diagram: 01/04/1717 01/04/17 0547 Results 24 hrs Laboratory Tests Test 01/04/17 05:17 01/04/17 05:47 White Blood Count 5.8 Red Blood Count 3.53 L Hemoglobin 11.3 L Hematocrit 32.2 L Mean Corpuscular Volume 91.2 Mean Corpuscular Hemoglobin 32.0 Mean Corpuscular Hemoglobin Concent 35.1 Red Cell Distribution Width 12.1 Platelet Count 212 Mean Platelet Volume 10.1 Neutrophils % 75.3 Lymphocytes % 16.1 Monocytes % 6.9 Eosinophils % 1.0 Basophils % 0.2 Nucleated Red Blood Cells % 0.0 Neutrophils # 4.3 Lymphocytes # 0.9 Monocytes # 0.4 Eosinophils # 0.1 Basophils # 0.0 Nucleated Red Blood Cells # 0.0 Sodium Level 139 Potassium Level 3.2 L Chloride Level 109 Carbon Dioxide Level 22 Anion Gap 11 Blood Urea Nitrogen 7 Creatinine 0.61 Glucose Level 100 Calcium Level 8.7 Medications Medications Current Medications Hydromorphone HCl (Dilaudid) 0.5 mg Q6H PRN IV PAIN LEVEL 6-10; Start 12/31/16 at 11:30 Morphine Sulfate 2 mg 2 mg Q2H PRN IV PAIN LEVEL 6-10 Last administered on 01/03 21:15; Admin Dose 2 MG; Start 12/31/16 at 11:30 Sodium Chloride (NS) 1,000 ml @ 100 mls/hr Q10H IV Last administered on 15:09; Admin Dose 100 MLS/HR; Start 12/31/16 at 11:20 Heparin Sodium (Porcine) (Heparin (5000 Units/0.5 ml)) 5,000 unit Q8 SC Last administered on 01/04/17 15:42; Admin Dose 5,000 UNIT; Start 12/31/16 at 14:00 Ondansetron HCl (Zofran Inj) 4 mg Q4H PRN IV NAUSEA AND/OR VOMITING Last administered on 01/02/17 18:03; Admin Dose 4 MG; Start 01/01/17 at 03:00 PETR WADE Jan 04, 2017 17:49
[2017-01-04] MEDS ORDERED: POTASSIUM CHLORIDE 20 MEQ POWDER FOR ORAL SOLN PO ONE (18:00)
[2017-01-04 19:39] VITALS: BP 140/72; RESP 20
[2017-01-04] MEDS ORDERED: POTASSIUM CHLORIDE 20 MEQ in SOD CHLORIDE 0.9% 100 ML IVPB ONE (20:00)
[2017-01-04] MEDS: morphine 2 MG INJ IV PRN (20:53)
[2017-01-05] MEDS: HEPARIN 5,000 UNIT/0.5 ML VIAL SC SCH ×3 (05:41→21:29)
[2017-01-05 06:11] LABS: ADD SCAN DIFF NO
[2017-01-05 06:15] LABS: BASOPHILS % 0.2 % (0.0-2.0); EOSINOPHILS # 0.1 10^3/ul (0.0-0.5); EOSINOPHILS % 2.1 % (0.0-7.0); LYMPHOCYTES # 1.4 10^3/ul (0.8-2.9); LYMPHOCYTES % 25.2 % (15.0-51.0); MEAN CORPUSCULAR HGB CONC 35.3 g/dl (32.0-37.0); MEAN CORPUSCULAR VOLUME 90.7 fl (82.0-101.0); MEAN PLATELET VOLUME 10.4 fl (7.4-10.4); MONOCYTE # 0.5 10^3/ul (0.3-0.9); MONOCYTES % 8.5 % (0.0-11.0); NEUTROPHIL # 3.6 10^3/ul (1.6-7.5); NEUTROPHILS % 63.5 % (39.0-77.0); PLATELET COUNT 225 10^3/UL (140-415); RED BLOOD COUNT 3.75 10^6/ul (4.20-5.40); WHITE BLOOD COUNT 5.7 10^3/ul (4.8-10.8)
[2017-01-05 07:12] LABS: CALCIUM 8.9 mg/dl (8.4-10.2); CREATININE 0.68 mg/dl (0.44-1.00); POTASSIUM 3.5 mmol/L (3.5-5.1)
[2017-01-05 08:15] VITALS: BP 108/69; RESP 18
--- NOTE | 2017-01-05 12:09 | PN ---
DATE: 01/05/2017 Postop day #5 status post rectosigmoid resection and primary anastomosis_. SUBJECTIVE: Feels better. She has tried solid food today, has been out of bed , walking around. No bowel movement yet, passing gas. She has some abdominal pain. OBJECTIVE: VITAL SIGNS: Temperature today 98.7, last night 99.5. Heart rate 81, respirations 18, blood pressure 108/69, saturations 96% on room air. LABORATORY: WBC today 5,700, hemoglobin 12, hematocrit 34. Chemistry within normal limits. ABDOMEN: Not distended, soft. Bowel sounds present. There is some tenderness on deep pressure in the right lower quadrant. EXTREMITIES: Legs, no calf tenderness. ASSESSMENT: Status post laparoscopic rectosigmoid resection. The patient is doing fine except that she had a little fever last night and also some tenderness and pain in the right lower quadrant. Otherwise appears okay, awaiting bowel movement. Today first solid diet was taken by the patient. PLAN: Continue the current care. Dictated By: TEGAN FALK MD PS/ARTI Conf#: [id number] DID#: [id number] MTDD
--- NOTE | 2017-01-05 13:55 | PN ---
Date/Time of Note Date/Time of Note DATE: 01/05/17 TIME: 13:52 Assessment/Plan VTE Prophylaxis VTE Prophylaxis Intervention: other Lines/Catheters IV [facility] Type (from [facility]): Peripheral IV Urinary Cath still in place: No (discontinued at 0630am today) Assessment/Plan Assessment/Plan 1. Recurrent diverticulitis, status post laparoscopic rectosigmoidectomy with primary colorectal low pelvic anastomosis, status post laparoscopic splenic flexure mobilization by Dr. Recinos. Continue IV fluids. Continue morphine for pain and Zofran p.r.n. for nausea. Follow up surgical recommendations. 2. History of gastroesophageal reflux disease. 3. Hypokalemia- resolved Sequential compression device for deep venous thrombosis prophylaxis. Further recommendations based on clinical course. Plan of care discussed with Dr. Gardner. Exam/Review of Systems Vital Signs Vitals Vital Signs Date Time Temp Pulse Resp B/P Pulse Ox O2 Delivery O2 Flow Rate FiO2 01/05/17 08:15 98.7 81 18 108/69 96 01/01/17 16:40 1.0 Intake and Output 01/04/17 01/04/17 01/05/17 15:00 23:00 07:00 Intake Total 1000 ml 1100 ml 610 ml Balance 1000 ml 1100 ml 610 ml Exam Constitutional: alert, well developed ENMT: nl external ears & nose Neck: supple Respiratory: clear to auscultation, normal air movement Cardiovascular: nl pulses, regular rate and rhythm Gastrointestinal: soft Musculoskeletal: nl extremities to inspection Neurological: nl mental status, nl speech Results Result Diagram: 01/05/17 0510 01/05/17 0510 Results 24 hrs Laboratory Tests Test 01/05/17 05:10 White Blood Count 5.7 Red Blood Count 3.75 L Hemoglobin 12.0 Hematocrit 34.0 L Mean Corpuscular Volume 90.7 Mean Corpuscular Hemoglobin 32.0 Mean Corpuscular Hemoglobin Concent 35.3 Red Cell Distribution Width 12.0 Platelet Count 225 Mean Platelet Volume 10.4 Neutrophils % 63.5 Lymphocytes % 25.2 Monocytes % 8.5 Eosinophils % 2.1 Basophils % 0.2 Nucleated Red Blood Cells % 0.0 Neutrophils # 3.6 Lymphocytes # 1.4 Monocytes # 0.5 Eosinophils # 0.1 Basophils # 0.0 Nucleated Red Blood Cells # 0.0 Sodium Level 137 Potassium Level 3.5 Chloride Level 106 Carbon Dioxide Level 23 Anion Gap 12 Blood Urea Nitrogen 9 Creatinine 0.68 Glucose Level 90 Calcium Level 8.9 Medications Medications Current Medications Hydromorphone HCl (Dilaudid) 0.5 mg Q6H PRN IV PAIN LEVEL 6-10; Start 12/31/16 at 11:30 Morphine Sulfate (morphine) 2 mg Q2H PRN IV PAIN LEVEL 6-10 Last administered on 01/04/17 20:53; Admin Dose 2 MG; Start 12/31/16 at 11:30 Heparin Sodium (Porcine) (Heparin (5000 Units/0.5 ml)) 5,000 unit Q8 SC Last administered on 01/05/17 05:41; Admin Dose 5,000 UNIT; Start 12/31/16 at 14:00 Ondansetron HCl (Zofran Inj) 4 mg Q4H PRN IV NAUSEA AND/OR VOMITING Last administered on 01/02/17 18:03; Admin Dose 4 MG; Start 01/01/17 at 03:00 WILD LIU Jan 05, 2017 13:55
[2017-01-05] MEDS ORDERED: BISACODYL (EC) 5 MG TAB PO PRN (14:30)
[2017-01-05] MEDS ORDERED: MAGNESIUM HYDROXIDE 30ML CUP PO ONE (14:30)
[2017-01-05] MEDS: DOCUSATE SODIUM 100 MG CAP PO SCH ×2 (14:34→21:00)
[2017-01-05] MEDS: PANTOPRAZOLE (EC) 40 MG TAB PO SCH (14:37)
[2017-01-05 19:50] VITALS: BP 109/56; RESP 20
[2017-01-06] MEDS: PANTOPRAZOLE (EC) 40 MG TAB PO SCH (06:19)
[2017-01-06] MEDS: HEPARIN 5,000 UNIT/0.5 ML VIAL SC SCH ×2 (06:26→14:00)
[2017-01-06 06:42] LABS: ADD SCAN DIFF NO
[2017-01-06 07:04] LABS: BASOPHILS % 0.4 % (0.0-2.0); EOSINOPHILS # 0.2 10^3/ul (0.0-0.5); HEMATOCRIT 38.3 % (37.0-47.0); HEMOGLOBIN 13.2 g/dl (12.0-16.0); LYMPHOCYTES # 1.7 10^3/ul (0.8-2.9); MEAN CORPUSCULAR HGB CONC 34.5 g/dl (32.0-37.0); MEAN CORPUSCULAR VOLUME 92.7 fl (82.0-101.0); MEAN PLATELET VOLUME 10.7 fl (7.4-10.4); MONOCYTE # 0.6 10^3/ul (0.3-0.9); MONOCYTES % 8.1 % (0.0-11.0); NEUTROPHIL # 4.9 10^3/ul (1.6-7.5); NEUTROPHILS % 65.6 % (39.0-77.0); PLATELET COUNT 232 10^3/UL (140-415); RED BLOOD COUNT 4.13 10^6/ul (4.20-5.40); RED CELL DISTRIBUTION WIDTH 12.3 % (11.5-14.5); WHITE BLOOD COUNT 7.4 10^3/ul (4.8-10.8)
[2017-01-06 07:09] LABS: CALCIUM 9.2 mg/dl (8.4-10.2); CREATININE 0.71 mg/dl (0.44-1.00); POTASSIUM 4.1 mmol/L (3.5-5.1)
[2017-01-06 07:40] VITALS: BP 100/59; RESP 18
[2017-01-06] MEDS: DOCUSATE SODIUM 100 MG CAP PO SCH (08:45)
--- NOTE | 2017-01-06 14:21 | PN ---
Date/Time of Note Date/Time of Note DATE: 01/06/17 TIME: 14:19 Assessment/Plan VTE Prophylaxis VTE Prophylaxis Intervention: SCD's Lines/Catheters IV [facility] Type (from [facility] [place] Urinary Cath still in place: No (discontinued at 0630am today) Assessment/Plan Assessment/Plan 1. Recurrent diverticulitis, status post laparoscopic rectosigmoidectomy with primary colorectal low pelvic anastomosis, status post laparoscopic splenic flexure mobilization by Dr. Recinos. Continue IV fluids. Continue morphine for pain and Zofran p.r.n. for nausea. Follow up surgical recommendations. 2. History of gastroesophageal reflux disease. Sequential compression device for deep venous thrombosis prophylaxis. Further recommendations based on clinical course. Anticipate discharge when cleared by surgery. Plan of care discussed with Dr. Gardner. Subjective 24 Hr Interval Summary Constitutional: improved Respiratory: no complaints Cardiovascular: no complaints Gastrointestinal: no complaints Skin: other (sp abdominal surgery) Exam/Review of Systems Vital Signs Vitals Vital Signs Date Time Temp Pulse Resp B/P Pulse Ox O2 Delivery O2 Flow Rate FiO2 01/06/17 07:40 98.5 76 18 100/59 96 Intake and Output 01/05/17 01/05/17 01/06/17 15:00 23:00 07:00 Intake Total 1560 ml 500 ml Balance 1560 ml 500 ml Exam Constitutional: alert Respiratory: clear to auscultation, normal air movement Cardiovascular: nl pulses, regular rate and rhythm Gastrointestinal: non-tender, soft Extremities: normal pulses Neurological: nl mental status, nl speech Skin: other Results Result Diagram: 01/06/17 0603 01/06/17 0603 Results 24 hrs Laboratory Tests Test 01/06/17 06:03 White Blood Count 7.4 # Red Blood Count 4.13 L Hemoglobin 13.2 Hematocrit 38.3 Mean Corpuscular Volume 92.7 Mean Corpuscular Hemoglobin 32.0 Mean Corpuscular Hemoglobin Concent 34.5 Red Cell Distribution Width 12.3 Platelet Count 232 Mean Platelet Volume 10.7 H Neutrophils % 65.6 Lymphocytes % 23.0 Monocytes % 8.1 Eosinophils % 2.0 Basophils % 0.4 Nucleated Red Blood Cells % 0.0 Neutrophils # 4.9 Lymphocytes # 1.7 Monocytes # 0.6 Eosinophils # 0.2 Basophils # 0.0 Nucleated Red Blood Cells # 0.0 Sodium Level 138 Potassium Level 4.1 Chloride Level 106 Carbon Dioxide Level 22 Anion Gap 14 Blood Urea Nitrogen 13 Creatinine 0.71 Glucose Level 92 Calcium Level 9.2 Medications Medications Current Medications Hydromorphone HCl (Dilaudid) 0.5 mg Q6H PRN IV PAIN LEVEL 6-10; Start 12/31/16 at 11:30 Morphine Sulfate (morphine) 2 mg Q2H PRN IV PAIN LEVEL 6-10 Last administered on 01/04/17 20:53; Admin Dose 2 MG; Start 12/31/16 at 11:30 Heparin Sodium (Porcine) (Heparin (5000 Units/0.5 ml)) 5,000 unit Q8 SC Last administered on 01/06/17 06:26; Admin Dose 5,000 UNIT; Start 12/31/16 at 14:00 Ondansetron HCl (Zofran Inj) 4 mg Q4H PRN IV NAUSEA AND/OR VOMITING Last administered on 01/02/17 18:03; Admin Dose 4 MG; Start 01/01/17 at 03:00 Docusate Sodium (Colace) 100 mg BID PO Last administered on 01/05/17 14:34; Admin Dose 100 MG; Start 01/05/17 at 14:30 Bisacodyl (Dulcolax) 5 mg DAILY PRN PO CONSTIPATION Last administered on 14:34; Admin Dose 5 MG; Start 01/05/17 at 14:30 Pantoprazole (Protonix Tab) 40 mg DAILY@06 PO Last administered on 01/06/17 06 :19; Admin Dose 40 MG; Start 01/05/17 at 14:30 WILD LIU Jan 06, 2017 14:21
--- NOTE | 2017-01-06 14:26 | PDOCDIS ---
Discharge Instructions HOME CARE INSTRUCTIONS: Special Diet: soft diet ACTIVITY: Activity Restrictions: Slowly Increase Activity Rest between Activity Avoid heavy lifting Do not operate Machinery Do not operate Power Tool Avoid Heavy Housework Bathing Restrictions: Sponge Bath FOLLOW UP/APPOINTMENTS Appointments FU with PMD x 1 week FU with surgeon as recommended Call 911 or go to the nearest hospital if symptoms worse. Plan dw Dr Gardner/staff/patient. WILD LIU Jan 06, 2017 14:26
[2017-01-06] MEDS ORDERED: DOCU-216 PO (14:28)
[2017-01-06] MEDS ORDERED: PANT40TA4 PO (14:28)
--- NOTE | 2017-01-07 08:03 | PN ---
DATE: 01/06/2017 PROGRESS NOTE FOLLOWUP Postop day #6, status post rectosigmoid resection and primary end-to-end anastomosis for diverticulitis. SUBJECTIVE: No complaints, feels better after having a good bowel movement today. OBJECTIVE: GENERAL: Awake, alert, oriented x3. VITAL SIGNS: Temperature 98.5, heart rate 76, respirations 18, blood pressure 100/59, saturation 96% on room air. LAB: WBC 7400 with 65% segmented, hemoglobin stable. ABDOMEN: Soft. Wound is clean. ASSESSMENT AND PLAN: Status post rectosigmoid resection 6 days ago. The patient is stable and has had a bowel movement, tolerating a diet. The patient can be discharged home to be followed by Dr. Recinos in his office. Dictated By: TEGAN FALK MD PS/NTS Conf#: [id number] DID#: [id number] MTDD
== END 2017-01-06 16:35 | disposition home or self-care (01) | DRG 331 ==
LOC: REC 05:23 → MS2 12:40
PROVIDERS: ADMIT Internal Medicine; ATTEND Surgery
PROC: 0DBP4ZZ Excision of Rectum, Percutaneous Endoscopic Approach (ICD-10-PCS; 2016-12-31)
PROC: 0DBN4ZZ Excision of Sigmoid Colon, Percutaneous Endoscopic Approach (ICD-10-PCS; principal; 2016-12-31 07:30)
DX: K57.12 Diverticulitis of small intestine without perforation or abscess without bleeding (principal); E78.5 Hyperlipidemia, unspecified; E87.6 Hypokalemia; K21.9 Gastro-esophageal reflux disease without esophagitis; Z87.442 Personal history of urinary calculi
CPT/HCPCS: 80048; 80053; 85025; 87086; 88305; J0131; J0295; J1100; J1170; J1644; J2175; J2250; J2270; J2310; J2405; J2710; J2765; J3010; J3480; J7030; J7999

== ENCOUNTER 2017-09-16 06:02 | Day surgery (SDC) | END 2017-09-16 11:19 | disposition home or self-care (01) ==

== ENCOUNTER 2019-03-11 18:53 | Emergency (ER) | payer OTHER ==
[~2019-03-11] VITALS: Ht 157.5 cm; Wt 68.6 kg
[~2019-03-11 18:53] MED LIST changes: +CEPH-443 PO; +DOCU-216 PO; +IBUP-1542 PO; -NO DAILY MEDS; +PANT40TA4 PO; +PRED20TA PO
[2019-03-11 19:18] VITALS: BP 133/58; PULSE 70; RESP 16; Ht 157.5 cm; Wt 68.6 kg
== END 2019-03-11 19:27 | disposition home or self-care (01) ==
LOC: E/R 18:53
DX: R59.9 Enlarged lymph nodes, unspecified (principal)
CPT/HCPCS: 99283